=== PATIENT | female | born 1945 | race Caucasian/White ===

== ENCOUNTER 2020-05-09 12:21 | Emergency (ER) | payer MEDICARE ==
[~2020-05-09] VITALS: Ht 165.1 cm; Wt 136.1 kg
[~2020-05-09 12:21] MED LIST: ACETAMINOPHEN325 M1 PO; ARTHRITIS PAIN650 M2 PO; AZITHROMYCIN 2250 MG PO; BROVANA15 MCG/2 M INH; CARAFATE 11 GM/10 M1 PO; CIPROFLOXACIN500 M1 PO; DUONEB 2.5-0.5 M3 ML INH; FLAGYL500 MG PO; FLONASE 0.05%50 MCG NASAL; HYDROCODON-ACE1 EAC7 PO; MUCINEX TA600 MG/TA2 PO; NEBULIZER MISCELL; PREDNISONE 10 M10 MG PO; PRILOSEC 20 MG20 MG PO; PROTONIX40 M1 PO; TRIAMCINOLONE 080 G3 TOP
[2020-05-09 13:00] LABS: ABSOLUTE BASOPHILS 0.1 thou/uL (0.0-0.2); ABSOLUTE LYMPHOCYTES 2.7 thou/uL (0.8-5.3); ABSOLUTE MONOCYTES 0.7 thou/uL (0.0-1.2); BASOPHILS 0.8 %; EOSINOPHILS 0.3 %; HEMATOCRIT 47.1 % (37.0-47.0); HEMOGLOBIN 15.8 gm/dL (12.0-15.0); MCH 30.7 pg (26.0-34.0); MCHC 33.5 g/dL (28.0-37.0); MCV 91.8 fL (80.0-100.0); MONOCYTES 10.3 %; MPV 7.9 fl. (7.2-11.1); NUCLEATED RBCS 0 /100WBC; PLATELET COUNT* 182 thou/uL (150-400); POLYS 46.6 %; RBC 5.13 mil/uL (4.20-5.00); WBC 6.4 thou/uL (4.0-11.0)
[2020-05-09 13:12] LABS: CALCIUM 8.6 mg/dL (8.5-10.1); CREATININE 0.9 mg/dL (0.6-1.3); POTASSIUM 3.5 mmol/L (3.5-5.1)
[2020-05-09 13:16] LABS: ALBUMIN 3.5 g/dL (3.4-5.0); TOTAL BILIRUBIN 0.5 mg/dL (<0.1-1.0); TOTAL PROTEIN 7.7 g/dL (6.4-8.2)
[2020-05-09] MEDS ORDERED: ZOFRAN ODT4 MG DISSOLVE (13:38)
[2020-05-09 13:59] VITALS: BP 171/70
--- NOTE | 2020-05-09 16:33 | EKG ---
[place] [address] ELECTROCARDIOGRAM REPORT Name: MARGARITA DIA Room: [facility]#: [id number] Admission: 05/09/20 Attend Phys: Discharge: 05/09/20 Date of : 47 Date of Service: 05/09/20 1255 Report #: [id number] THIS REPORT FOR: //name// [facility] ED Test Date: 2020-05-09 Test Time: 12:55:01 Pat Name: MARGARITA DIA Department: Room: Gender: Part Time Flexible Clerk: [facility] : 1945 Requested By: Hero Mcdermott Order Number: [id number] : Malvin Galan Measurements Intervals [place] Rate: 78 P: 40 RI: 124 QRS: 54 QRSD: 95 T: 62 QT: 403 QTc: 460 Interpretive Statements Sinus rhythm Compared to ECG 01/23/2013 23:13:45 No significant changes Electronically Signed On 05-09-2020 16:32:58 CRYPTOLOGIC TECHNICIAN by Malvin Galan [email or web address] <ELECTRONICALLY SIGNED> By: Malvin Galan MD, [facility] 05/09/20 1632 1255 Malvin Galan MD, FAC /EPI
== END 2020-05-09 14:00 | disposition home or self-care (01) ==
LOC: M.ERS 12:21
PROVIDERS: Emergency Medicine Emergency Medical Services
DX: U07.1 COVID-19 (principal); F17.210 Nicotine dependence, cigarettes, uncomplicated; Z79.899 Other long term (current) drug therapy; Z88.0 Allergy status to penicillin; Z88.2 Allergy status to sulfonamides; Z88.1 Allergy status to other antibiotic agents; Z90.710 Acquired absence of both cervix and uterus; Z90.49 Acquired absence of other specified parts of digestive tract

== ENCOUNTER → 2021-05-12 | Outpatient (CLI) | payer MEDICARE ==
[~2021-05-12] MED LIST changes: +ZOFRAN ODT4 MG DISSOLVE
== END ==
LOC: M.LAB 12:22
PROVIDERS: ATTEND Internal Medicine Gastroenterology
DX: Z01.812 Encounter for preprocedural laboratory examination (principal); Z20.822 Contact with and (suspected) exposure to COVID-19